=== PATIENT | male | born 1980 | race African-American/Black ===

== ENCOUNTER 2020-06-07 04:12 | Emergency (ER) | payer SELFPAY ==
[~2020-06-07] VITALS: Ht 177.8 cm; Wt 75.0 kg
[2020-06-07] MEDS ORDERED: IV DEXTROSE 5% - 0.9 % NACL 1,000 ML IV ONE (04:30)
[2020-06-07 04:33] LABS: BASO # 0.1 x10^3/uL (0.0-0.2); BASO % 1 % (0-3); EOS % 0 % (0-3); HEMATOCRIT 45.2 % (39.0-53.0); HEMOGLOBIN 15.3 g/dL (13.0-17.5); LYMPH # 2.8 x10^3/uL (1.0-4.8); LYMPH % 31 % (24-48); MEAN CORPUSCULAR HEMOGLOBIN 31 pg (25-35); MEAN CORPUSCULAR HGB CONC 34 g/dL (31-37); MEAN CORPUSCULAR VOLUME 92 fL (79-100); MONO # 0.4 x10^3/uL (0.0-1.1); MONO % 5 % (0-9); NEUT # 5.5 x10^3/uL (1.8-7.7); NEUT % 63 % (31-73); PLATELET COUNT 178 x10^3/uL (140-400); RED BLOOD COUNT 4.93 x10^6/uL (4.30-5.70); RED CELL DISTRIBUTION WIDTH 13.2 % (11.5-14.5); WHITE BLOOD COUNT 8.8 x10^3/uL (4.0-11.0)
[2020-06-07 04:43] LABS: CALCIUM 8.7 mg/dL (8.5-10.1); CREATININE 1.6 mg/dL (0.7-1.3); GFR 47.6; POTASSIUM 3.4 mmol/L (3.5-5.1)
[2020-06-07] MEDS ORDERED: DEXTROSE 50% 25 GM / 50ML DISP.SYRIN. IV ONE (04:45)
[2020-06-07] MEDS ORDERED: METOCLOPRAMIDE HCL 10 MG/2 ML VIAL. IVP ONE (04:45)
[2020-06-07] MEDS ORDERED: DEXAMETHASONE SOD PHOS 4 MG/ML VIAL IVP ONE (04:45)
[2020-06-07] MEDS ORDERED: diphenhydrAMINE 50 MG/ML VIAL IVP ONE (04:45)
[2020-06-07] MEDS ORDERED: KETOROLAC 15 MG/ML VIAL. IVP ONE (04:45)
[2020-06-07 04:46] LABS: PROTHROMBIN TIME PATIENT 13.4 SEC (11.7-14.0)
--- NOTE | 2020-06-07 04:49 | PHYS DOC ---
Past Medical History Past Medical History: Anxiety, Depression Past Surgical History: No Surgical History Smoking Status: Current Some Day Smoker Alcohol Use: Occasionally Drug Use: None General Adult EDM: Chief Complaint: HYPOGLYCEMIA HPI: HPI: 40-year-old male presents via EMS with report of headache. Denies trauma. Reports associated nausea and vomiting. EMS reports taking a blood sugar that was down into the 40s. EMS reports giving oral glucose. Patient apparently was drinking some alcohol today. Denies heavy drinking. Denies drug abuse. Denies history of diabetes. Denies exposure to COVID-19. Review of Systems: Review of Systems: Constitutional: Denies fever or chills; reports malaise Eyes: Denies redness or eye pain HENT: Denies nasal congestion or sore throat Respiratory: Denies cough or shortness of breath Cardiovascular: Denies chest pain or palpitations GI: Denies abdominal pain; reports nausea : Denies dysuria or hematuria Musculoskeletal: Denies back pain or joint pain Integument: Denies rash or skin lesions Neurologic: Reports headache; denies focal weakness or sensory changes Complete systems were reviewed and found to be within normal limits, except as documented in this note. Current Medications: Current Medications Medications (Trade) Dose Ordered Sig/Brandi Start Time Stop Time Status Last Admin Dose Admin Dexamethasone Sodium Phosphate (Decadron) 10 mg 1X ONCE 06/07/20 04:30 06/07/20 04:31 UNV Dextrose (Dextrose 50%-Water Syringe) 25 gm 1X ONCE 06/07/20 04:45 06/07/20 04:46 UNV Dextrose/Sodium Chloride 1,000 ml @ 500 mls/hr 1X ONCE 06/07/20 04:30 06/07/20 06:29 UNV 06/07/20 04:35 500 MLS/HR Diphenhydramine HCl (Benadryl) 25 mg 1X ONCE 06/07/20 04:30 06/07/20 04:31 UNV Ketorolac Tromethamine (Toradol 15mg Vial) 15 mg 1X ONCE 06/07/20 04:30 06/07/20 04:31 UNV Metoclopramide HCl (Reglan Vial) 10 mg 1X ONCE 06/07/20 04:30 06/07/20 04:31 UNV Allergies: Allergies: Allergies Coded Allergies Type Severity Reaction Last Updated Verified No Known Drug Allergies 06/07/20 No Physical Exam: PE: Constitutional: Well developed, well nourished, no acute distress, non-toxic appearance HENT: Normocephalic, atraumatic Eyes: PERRL, EOMI, conjunctiva normal, no discharge Neck: Normal range of motion, no midline tenderness, supple Lungs & Thorax: No respiratory distress, equal chest rise and fall Abdomen: Soft, no tenderness, no guarding/rebound tenderness/distention Skin: Warm, dry, no erythema, no rash Extremities: No tenderness, ROM intact, no edema Neurologic: Alert and oriented X 3, normal motor function, normal sensory function, no focal deficits noted Psychologic: Affect normal, judgment normal Current Patient Data: Labs: Laboratory Tests Test 06/07/20 04:25 06/07/20 04:33 White Blood Count 8.8 x10^3/uL (4.0-11.0) Red Blood Count 4.93 x10^6/uL (4.30-5.70) Hemoglobin 15.3 g/dL (13.0-17.5) Hematocrit 45.2 % (39.0-53.0) Mean Corpuscular Volume 92 fL (79-100) Mean Corpuscular Hemoglobin 31 pg (25-35) Mean Corpuscular Hemoglobin Concent 34 g/dL (31-37) Red Cell Distribution Width 13.2 % (11.5-14.5) Platelet Count 178 x10^3/uL (140-400) Neutrophils (%) (Auto) 63 % (31-73) Lymphocytes (%) (Auto) 31 % (24-48) Monocytes (%) (Auto) 5 % (0-9) Eosinophils (%) (Auto) 0 % (0-3) Basophils (%) (Auto) 1 % (0-3) Neutrophils # (Auto) 5.5 x10^3/uL (1.8-7.7) Lymphocytes # (Auto) 2.8 x10^3/uL (1.0-4.8) Monocytes # (Auto) 0.4 x10^3/uL (0.0-1.1) Eosinophils # (Auto) 0.0 x10^3/uL (0.0-0.7) Basophils # (Auto) 0.1 x10^3/uL (0.0-0.2) Glucose (Fingerstick) 39 mg/dL (70-99) *L Laboratory Tests 06/07/20 04:25 EKG: EKG: @0433 Sinus bradycardia at 62bpm, NO ST elevation, QRS 76ms, QT/QTc 420/429ms, baseline artifact I-aVF Radiology/Procedures: Radiology/Procedures: PROCEDURE: CT HEAD WO CONTRAST EXAM: CT Head without IV contrast INDICATION: Reason: headache / Spl. Instructions: / History: TECHNIQUE: Multi-detector row CT images were obtained of the head without the use of IV contrast. All CT scans performed at this facility utilize dose optimization techniques as appropriate to the exam, including the following: Automated exposure control and adjustment of the mA and/or KV according to patient size (this includes techniques or standardized protocols for targeted exams where dose is indication/reason for exam). COMPARISON: None FINDINGS: BRAIN PARENCHYMA: No evidence of acute intraparenchymal hemorrhage or infarct. No abnormal parenchymal density or mass. VENTRICLES & EXTRA-AXIAL SPACES: Ventricles are within normal limits. Basilar cisterns are patent. No pathologic extra-axial fluid collection or mass. ORBITS: Orbital contents are unremarkable. SINUSES: Visualized paranasal sinuses and mastoid air cells are clear. OSSEOUS & SOFT TISSUES: Calvarium and skull base are intact. IMPRESSION: Normal CT of the head without contrast. Electronically signed by: Bhavin Prince MD (06/07/2020 5:40 AM) [facility] [place] Course & Med Decision Making: Course & Med Decision Making Pertinent Labs and Imaging studies reviewed. (See chart for details) Patient presents via EMS with report of headache and was found to have a low blood sugar. Patient reports he had been drinking. Denies trauma. Patient had been noted to have blood sugar down to 40s. EMS reports giving oral glucose. Repeat glucose upon arrival down to 39. D50 amp and D5NS IVF bolusing given. EKG stable. Labs obtained and posted to chart. Hypokalemia addressed. ETOH >130. CT head without acute process. Symptomatic treatment provided. Patient with interval improvement of symptoms. Repeat glucose now stabilized. Patient stable for discharge with outpatient follow-up with PCP. Alcohol detox resources provided. Discussed findings and plan with patient, who acknowledges understanding and agreement. Jessi Disclaimer: Jessi Disclaimer: This electronic medical record was generated, in whole or in part, using a voice recognition dictation system. Departure Departure Impression: Primary Impression: Alcohol intoxication Qualified Codes: F10.929 - Alcohol use, unspecified with intoxication, unspecified Additional Impressions: Headache Qualified Codes: R51 - Headache Hypoglycemia Hypokalemia Disposition: HOME, SELF-CARE Condition: STABLE Patient Instructions: Alcohol Intoxication, [id number], Headache, FAQs, Hypoglycemia, [id number], Hypokalemia, Potassium Content of Foods Scripts Ondansetron (ONDANSETRON ODT) 4 Mg Tab.rapdis 1 TAB PO PRN Q6-8HRS PRN for NAUSEA, #16 TAB Prov: RUPESH PARRISH DO 06/07/20 Butalb/Acetaminophen/Caffeine ([id number] 50-325-40) 1 Each Tablet 1 EACH PO Q6HRS PRN for HEADACHE, #10 TAB Prov: RUPESH PARRISH DO 06/07/20 Justicifation of Admission Dx: Justifications for Admission: Justification of Admission Dx: N/A RUPESH PARRISH DO Jun 07, 2020 04:49
[2020-06-07 04:50] LABS: ALBUMIN 4.4 g/dL (3.4-5.0); ALBUMIN/GLOBULIN RATIO 1.2 (1.0-1.7); TOTAL BILIRUBIN 0.7 mg/dL (0.2-1.0); TOTAL PROTEIN 8.1 g/dL (6.4-8.2)
[2020-06-07 05:33] LABS: BARBITURATES NEG (NEG); BENZODIAZEPINES NEG (NEG); CANNABINOIDS NEG (NEG); COCAINE NEG (NEG); METHADONE NEG (NEG); OPIATES NEG (NEG); PHENCYCLIDINE NEG (NEG)
[2020-06-07 05:35] LABS: AMPHETAMINE/METHAMPHETAMINE NEG (NEG)
[2020-06-07 05:38] LABS: BILIRUBIN,URINE NEGATIVE (NEG); CLARITY,URINE CLEAR; COLOR,URINE YELLOW; NITRITE,URINE NEGATIVE (NEG); PROTEIN,URINE NEGATIVE (NEG-TRACE); UROBILINOGEN,URINE 0.2 mg/dL (0.2 mg/dL)
--- NOTE | 2020-06-07 05:43 | RAD ---
EXAM: CT Head without IV contrast INDICATION: Reason: headache / Spl. Instructions: / History: TECHNIQUE: Multi-detector row CT images were obtained of the head without the use of IV contrast. All CT scans performed at this facility utilize dose optimization techniques as appropriate to the exam, including the following: Automated exposure control and adjustment of the mA and/or KV according to patient size (this includes techniques or standardized protocols for targeted exams where dose is indication/reason for exam). COMPARISON: None FINDINGS: BRAIN PARENCHYMA: No evidence of acute intraparenchymal hemorrhage or infarct. No abnormal parenchymal density or mass. VENTRICLES & EXTRA-AXIAL SPACES: Ventricles are within normal limits. Basilar cisterns are patent. No pathologic extra-axial fluid collection or mass. ORBITS: Orbital contents are unremarkable. SINUSES: Visualized paranasal sinuses and mastoid air cells are clear. OSSEOUS & SOFT TISSUES: Calvarium and skull base are intact. IMPRESSION: Normal CT of the head without contrast. Electronically signed by: Bhavin Prince MD (06/07/2020 5:40 AM) [facility] [place]
[2020-06-07] MEDS ORDERED: BUTA1TAB23 PO (05:55)
[2020-06-07] MEDS ORDERED: ONDA4TAB12 PO (05:55)
[2020-06-07] MEDS ORDERED: POTASSIUM CHLORIDE 20 MEQ TABLET.ER. PO ONE (06:00)
[2020-06-07 06:06] LABS: BACTERIA,URINE 0 /HPF (0-FEW); SQUAMOUS EPITHELIAL CELL,UR OCC /LPF
[2020-06-07 06:19] VITALS: BP 117/61
--- NOTE | 2020-06-10 09:50 | EKG ---
[facility] [address] [place] [address] Test Date: 2020-06-07 Test Time: 04:33:16 Pat Name: GUNNAR MARTINEZ Department: Room: Gender: M Home Care Scheduler: : 1980 Requested By: RUPESH PARRISH Order Number: [id number] Reading MD: Measurements Intervals [place] Rate: 62 P: 59 MI: 166 QRS: 18 QRSD: 76 T: 34 QT: 420 QTc: 429 Interpretive Statements SINUS ARRHYTHMIA LOW LIMB LEAD VOLTAGE NO SPECIFIC ECG ABNORMALITIES RI6.01 No previous ECG available for comparison
== END 2020-06-07 06:20 | disposition home or self-care (01) ==
LOC: ER 04:12
DX: F10.229 Alcohol dependence with intoxication, unspecified (principal); R51 Headache; R11.2 Nausea with vomiting, unspecified; E87.6 Hypokalemia; F41.9 Anxiety disorder, unspecified; F32.9 Major depressive disorder, single episode, unspecified; F17.200 Nicotine dependence, unspecified, uncomplicated; E16.2 Hypoglycemia, unspecified; Z79.899 Other long term (current) drug therapy
CPT/HCPCS: 36415; 70450; 80053; 80307; 81001; 82553; 82962; 83690; 84484; 85025; 85610; 85730; 96361; 96374; 96375; 99285; G0480; J1100; J1200; J1885; J2765; J7042; 93005